=== PATIENT | female | born 1965 | race American Indian/Alaskan Native ===

== ENCOUNTER 2020-09-10 09:03 | Outpatient (CLI) | payer OTHER ==
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
== END 2020-09-10 09:04 | disposition home or self-care (01) ==
LOC: XRAY 09:03
PROVIDERS: ATTEND Internal Medicine
DX: M43.16 Spondylolisthesis, lumbar region (principal); M47.817 Spondylosis without myelopathy or radiculopathy, lumbosacral region; M48.07 Spinal stenosis, lumbosacral region; D25.9 Leiomyoma of uterus, unspecified
CPT/HCPCS: 72100